=== PATIENT | female | born 1985 | race Caucasian/White ===

== ENCOUNTER 2018-12-03 11:36 | Emergency (ER) | payer MEDICAID ==
[~2018-12-03] VITALS: Ht 149.9 cm; Wt 72.3 kg
[~2018-12-03 11:36] MED LIST: VIC PO
[2018-12-03 11:43] VITALS: BP 98/56
--- NOTE | 2018-12-03 12:00 | NUR ---
33 Y FEMALE BIB SELF C/O LOWER ABDOMINAL PAIN RADIATING TO MID ABDOMEN & VOMITTING. PAIN 08/27. BOWEL SOUNDS ACTIVE IN ALL 4 QUADRANTS. ABDOMEN NON-TENDER AND ROUND AND SOFT. PT STATES SHE HAS MILD CONSTIPATION. LAST BM YESTERDAY. PT SPEAKS MINIMAL ARABIC. PATIENT HAD UTI & TREATED WITH CEPHALEXIN 11/25/18. VSS AT THIS TIME. PT AA0X4. BED IS DOWN, LOCKED, BED RAIL X 1, ERMD TO SEE PT. LMP 10/01/18 EDC 07/08/09
--- NOTE | 2018-12-03 12:10 | NUR ---
DR OLSON AT BEDSIDE
[2018-12-03] MEDS ORDERED: MECLIZINE 25 MG TAB PO ONE (12:25)
[2018-12-03] MEDS ORDERED: MULTIVITAMIN-12 10 ML, THIAMINE 100 MG, MAGNESIUM SULFATE 50% 2,000 MG, FOLIC ACID 5 MG... IV ONE ×5 (12:25)
[2018-12-03] MEDS ORDERED: ONDANSETRON 4 MG/2 ML VIAL IVP ONE (12:25)
[2018-12-03] MEDS ORDERED: DEXT 5% / LACT RING 1,000 ML IV ONE (12:25)
[2018-12-03] MEDS ORDERED: PROMETHAZINE 25 MG/ML VIAL IM ONE (12:25)
--- NOTE | 2018-12-03 12:37 | NUR ---
US AT BEDSIDE
--- NOTE | 2018-12-03 12:50 | NUR ---
LABS DRAWN BEDSIDE AND HANDED TO INFORMATICA DEVELOPER
[2018-12-03 12:53] LABS: BASOPHILS % (AUTO) 0.7 % (0.0-2.0); EOSINOPHILS # (AUTO) 0.1 K/uL (0-0.4); EOSINOPHILS % (AUTO) 1.5 % (0.0-4.0); HEMATOCRIT 37.9 % (36-48); HEMOGLOBIN 12.8 g/dL (12.0-16.0); LYMPHOCYTES # (AUTO) 1.5 K/uL (2.5-16.5); LYMPHOCYTES % (AUTO) 26.2 % (20.5-51.1); MEAN CORPUSCULAR HEMOGLOBIN 29 pg (27-31); MEAN CORPUSCULAR HGB CONC 34 g/dL (33-37); MEAN CORPUSCULAR VOLUME 86.8 fL (80-94); MONOCYTES # (AUTO) 0.4 K/uL (0.8-1.0); MONOCYTES % (AUTO) 6.8 % (1.7-9.3); NEUTROPHILS # (AUTO) 3.7 K/uL (1.8-7.7); NEUTROPHILS % (AUTO) 64.8 % (42.2-75.2); PLATELET COUNT (AUTO) 194 K/uL (140-450); RED BLOOD CELL COUNT(AUTO) 4.36 MIL/uL (4.20-5.40); RED CELL DISTRIBUTION WIDTH 13.8 % (11.6-13.7); WHITE BLOOD COUNT (AUTO) 5.6 K/uL (4.8-10.8)
[2018-12-03 13:01] LABS: ACETONE, SERUM NEGATIVE (NEGATIVE)
--- NOTE | 2018-12-03 13:45 | NUR ---
CALLED PHARMACY, DEXTROSE LACTED RINGERS CAN RUN WITH BANANA BAG.
--- NOTE | 2018-12-03 15:30 | NUR ---
PT GAVE ANOTHER URINE SAMPLE. URINE HANDED DIRECTLY TO TIRE BUFFER
[2018-12-03 15:41] LABS: APPEARANCE,URINE CLEAR (CLEAR); BILIRUBIN,URINE NEGATIVE (NEGATIVE); BLOOD, URINE NEGATIVE (NEGATIVE); COLOR,URINE YELLOW (YELLOW); LEUKOCYTE ESTERASE ,URINE TRACE (NEGATIVE); NITRITE, URINE NEGATIVE (NEGATIVE); PH,URINE 6.5 (5.0-9.0); UGLUCOSE NEGATIVE (NEGATIVE)
--- NOTE | 2018-12-03 15:55 | NUR ---
PT SLEEPING. AROUSABLE TO NAME. VSS AT THIS TIME.
[2018-12-03 15:57] LABS: RBC,URINE 0-5 /HPF (0-5); WBC,URINE 0-5 /HPF (0-5)
[2018-12-03 15:59] LABS: BARBITURATE, URINE NEG. ng/ml (NEG <=200); BENZODIAZEPINE, URINE NEG. ng/mL (NEG <=200); CANNABINOID, URINE NEG. ng/mL (NEG <=50); COCAINE, URINE NEG. ng/mL (NEG <=300); OPIATE, URINE NEG. ng/mL (NEG <=2000); PHENCYCLIDINE SCREEN,URINE NEG. ng/mL (NEG <=25)
--- NOTE | 2018-12-03 16:59 | NUR ---
FLUIDS TO FINISH RUNNING BEFORE PT IS DISCHARGED. WILL CONTINOR TO MONITOR
--- NOTE | 2018-12-03 18:40 | NUR ---
PT DISCHARGED WITH 400 ML DEXTROSE NON-ADMINISTERED. OKAY WITH DR OLSON. BANANA BAG 1,000 ML ADMINISTERED.
[2018-12-03 18:41] VITALS: BP 124/79
--- NOTE | 2018-12-03 18:41 | NUR ---
Patient discharged with v/s stable. Written and verbal after care instructions given and explained. Patient alert, oriented and verbalized understanding of instructions. Ambulatory with steady gait. All questions addressed prior to discharge. ID band removed. Patient advised to follow up with PMD. Rx of FOLIC ACID, ZOFRAN, MULTIVITAMINS given. Patient educated on indication of medication including possible reaction and side effects. Opportunity to ask questions provided and answered. FREDA CESAR TECH, TRANSLATED SHAY[place] TO [place].
== END 2018-12-03 18:41 | disposition home or self-care (01) ==
LOC: MED 11:36
DX: O21.0 Mild hyperemesis gravidarum (principal); O23.11 Infections of bladder in pregnancy, first trimester; Z3A.10 10 weeks gestation of pregnancy; Z79.891 Long term (current) use of opiate analgesic
CPT/HCPCS: 36415; 76817; 80305; 81001; 81025; 82009; 83735; 84702; 85025; 86900; 86901; 96361; 96365; 96366; 96375; 99284; A9153; J2405; J2550; J3411; J3475; J3490; J7030; J7120; J8597; Q0092

== ENCOUNTER 2018-12-14 22:55 | Emergency (ER) | payer MEDICAID ==
[~2018-12-14] VITALS: Ht 149.9 cm; Wt 69.9 kg
--- NOTE | 2018-12-14 23:06 | NUR ---
PT AMBULATED TO ER BED 7
[2018-12-14 23:10] VITALS: BP 112/77
--- NOTE | 2018-12-14 23:15 | NUR ---
PT BIB SELF C/O N/V THROUGHOUT , C/O VOMITING APPROXIMATELY 15 TIMES PER DAY, UNABLE TO KEEP FLUIDS OR FOOD DOWN, WAS SEEN BY OBGYN 2 DAYS AGO, RX ANTIBIOTICS FOR UTI AND ANTINAUSEA MEDICATION BUT STATES SHE COULDN'T AFFORD TO GET THE NAUSEA MEDICATION. PT DENIES VAGINALLY BLEEDING OR DISCHARGE AT THIS TIME. PT ACTING APPROPRIATLY, SPEAKING IN CLEAR AND COMPLETE SENTENCES. BREATHING EQUAL AND UNLABORED. PENDING ERMD EVAL. WILL CONTINUE TO MONITOR. HX DENIES G-4 P-2 A-1 (ECTOPIC)
[2018-12-14] MEDS ORDERED: PNV1TABL8 PO (23:18)
[2018-12-14] MEDS ORDERED: DOXY25TA61 PO (23:18)
[2018-12-14] MEDS ORDERED: METO-485 PO (23:18)
[2018-12-14] MEDS ORDERED: CEPH250C16 PO (23:18)
[2018-12-15] MEDS ORDERED: DICYCLOMINE HCL LIQUID 10 MG/5 ML UDC PO ONE (00:05)
[2018-12-15] MEDS ORDERED: ONDANSETRON 4 MG/2 ML VIAL IVP ONE (00:05)
--- NOTE | 2018-12-15 00:10 | NUR ---
LABS DRAWN BY DEQUAN AND SENT GERALDO PETER TO LAB.
[2018-12-15 00:20] LABS: BASOPHILS % (AUTO) 0.6 % (0.0-2.0); EOSINOPHILS # (AUTO) 0.1 K/uL (0-0.4); EOSINOPHILS % (AUTO) 1.9 % (0.0-4.0); HEMATOCRIT 37.4 % (36-48); HEMOGLOBIN 12.6 g/dL (12.0-16.0); LYMPHOCYTES # (AUTO) 2.1 K/uL (2.5-16.5); LYMPHOCYTES % (AUTO) 33.5 % (20.5-51.1); MEAN CORPUSCULAR HEMOGLOBIN 29 pg (27-31); MEAN CORPUSCULAR HGB CONC 34 g/dL (33-37); MEAN CORPUSCULAR VOLUME 86.7 fL (80-94); MONOCYTES # (AUTO) 0.5 K/uL (0.8-1.0); MONOCYTES % (AUTO) 7.8 % (1.7-9.3); NEUTROPHILS # (AUTO) 3.5 K/uL (1.8-7.7); NEUTROPHILS % (AUTO) 56.2 % (42.2-75.2); PLATELET COUNT (AUTO) 184 K/uL (140-450); RED BLOOD CELL COUNT(AUTO) 4.31 MIL/uL (4.20-5.40); RED CELL DISTRIBUTION WIDTH 13.6 % (11.6-13.7); WHITE BLOOD COUNT (AUTO) 6.2 K/uL (4.8-10.8)
[2018-12-15 00:20] LABS: APPEARANCE,URINE SL CLOUDY (CLEAR); BILIRUBIN,URINE NEGATIVE (NEGATIVE); BLOOD, URINE TRACE-I (NEGATIVE); COLOR,URINE YELLOW (YELLOW); LEUKOCYTE ESTERASE ,URINE 2+ (NEGATIVE); NITRITE, URINE NEGATIVE (NEGATIVE); UGLUCOSE NEGATIVE (NEGATIVE)
[2018-12-15 00:30] LABS: ANION GAP 12.6 (8-16); CARBON DIOXIDE 24.8 mmol/L (21-32); CREATININE 0.6 mg/dL (0.6-1.3); POTASSIUM 3.4 mmol/L (3.5-5.1)
[2018-12-15 00:36] LABS: ALBUMIN 3.6 g/dL (3.4-5.0); TOTAL BILIRUBIN 0.4 mg/dL (0.0-1.0)
--- NOTE | 2018-12-15 00:50 | NUR ---
Patient being evaluated by Dr. Milligan at bedside.
[2018-12-15 01:03] LABS: WBC,URINE TOO MANY TO COUNT /HPF (0-5)
[2018-12-15] MEDS ORDERED: cefTRIAXone 2,000 MG in DEXTROSE 5% 100 ML IV ONE (01:10)
[2018-12-15] MEDS ORDERED: cefTRIAXone 2,000 MG VIAL ONE (01:29)
--- NOTE | 2018-12-15 01:30 | NUR ---
PT POSITIONED FOR COMFORT. PT STATES SHE FEEL RELIEF FROM NAUSEA, DENIES PAIN AT THIS TIME. WILL CONTINUE TO MONITOR.
--- NOTE | 2018-12-15 02:41 | NUR ---
BP 97/53. DR. DONG MADE AWARE. DR. DONG ORDERED FOR PATIENT TO ATTEMPT ORAL FLUIDS PRIOR TO DISCHARGE. ICE WATER PROVIDED TO PATIENT FOR PO CHALLENGE. IF PATIENT CAN TOLERATE FLUIDS THEN PATIENT MAY BE DISCHARGED HOME.
[2018-12-15 03:30] VITALS: BP 94/53
--- NOTE | 2018-12-15 03:30 | NUR ---
Patient discharged with v/s stable. Patient acting appropriatly, states she feels better to go home; denies pain at this time. Written and verbal after care instructions given and explained. Patient alert, oriented and verbalized understanding of instructions. Ambulatory with steady gait. All questions addressed prior to discharge. ID band removed. Patient advised to follow up with PMD. Rx of Keflex given. Patient educated on indication of medication including possible reaction and side effects. Opportunity to ask questions provided and answered.
== END 2018-12-15 03:30 | disposition home or self-care (01) ==
LOC: MED 22:55
DX: O23.41 Unspecified infection of urinary tract in pregnancy, first trimester (principal); O21.0 Mild hyperemesis gravidarum; Z3A.12 12 weeks gestation of pregnancy; Z79.899 Other long term (current) drug therapy
CPT/HCPCS: 36415; 80053; 81001; 82150; 83690; 84703; 85025; 87086; 96365; 96375; 99283; J0696; J2405